=== PATIENT | female | born 1990 | race Caucasian/White ===

== ENCOUNTER 2018-05-13 14:19 | Emergency (ER) | payer OTHER ==
[~2018-05-13] VITALS: Ht 162.6 cm; Wt 102.1 kg
[~2018-05-13 14:19] MED LIST: ALBUTEROL INH; ALBUTEROL INHAL17 GM IH; ALBUTEROL2.5 MG/32 IH; BACTRIM DS TAB1 EACH PO; CARBAMAZEPINE200 M3 PO; CELEXA 20 MG TA20 M1 PO; CELEXA10 MG PO; CHILDREN'S50 MG/1.24 PO; CIPROFLOXACIN500 M1 PO; CLEOCIN HCL300 MG PO; CLONAZEPAM 1 MG1 M1 PO; FLEXERIL PO; IBUPROFEN 600600 M1 PO; IMPLANON; NAPROSYN500 MG PO; NORCO 5-325 TA1 EACH; NORCO 5-325 TA1 EACH PO; PERCOCET 5-3251 EACH PO; PREDNISONE 10 M10 M1 PO; PREDNISONE 20 M20 MG PO; PREDNISONE50 MG PO; VENTOLIN HFA INH8 GM IH; VICODIN 5-5001 EACH PO; ZOFRAN ODT4 MG PO; ZPAK PO
[2018-05-13] MEDS ORDERED: FLOVENT HFA 4444 MCG INH (14:31)
[2018-05-13 15:30] LABS: ABSOLUTE LYMPHOCYTES 0.9 thou/uL (0.8-5.3); ABSOLUTE MONOCYTES 0.5 thou/uL (0.0-1.2); ABSOLUTE NEUTROPHILS 4.6 thou/uL (1.6-8.1); BASOPHILS 0.5 %; EOSINOPHILS 0.6 %; HEMATOCRIT 38.3 % (37.0-47.0); HEMOGLOBIN 12.5 gm/dL (12.0-15.0); LYMPHOCYTES 15.2 %; MCH 29.8 pg (26.0-34.0); MCHC 32.8 g/dL (28.0-37.0); MONOCYTES 7.7 %; MPV 8.3 fl. (7.2-11.1); NUCLEATED RBCS 0 /100WBC; PLATELET COUNT* 365 thou/uL (150-400); RBC 4.21 mil/uL (4.20-5.00); RDW-CV 13.9 % (10.5-14.5)
[2018-05-13 15:36] LABS: ANION GAP 8 mmol/L (7-16); BUN 12 mg/dL (7-18); CALCIUM 7.9 mg/dL (8.5-10.1); CHLORIDE 103 mmol/L (98-107); CO2 29 mmol/L (21-32); CREATININE 0.7 mg/dL (0.6-1.3); GLUCOSE 106 mg/dL (70-99); POTASSIUM 3.3 mmol/L (3.5-5.1); SODIUM 140 mmol/L (136-145)
[2018-05-13 15:47] LABS: ALBUMIN 3.2 g/dL (3.4-5.0); ALKALINE PHOSPHATASE 60 U/L (46-116); NT-PRO BRAIN NAT PEPTIDE 31 pg/mL (<300); SGOT 16 U/L (15-37); SGPT 19 U/L (30-65); TOTAL BILIRUBIN 0.1 mg/dL (<0.1-1.0); TOTAL PROTEIN 7.2 g/dL (6.4-8.2); TROPONIN-I LEVEL <0.06 ng/mL (<0.06)
[2018-05-13] MEDS ORDERED: FLOVENT HFA10.6 GM INH (16:01)
[2018-05-13] MEDS ORDERED: VENTOLIN HFA 1818 GM INH (16:02)
[2018-05-13] MEDS ORDERED: MEDROLDOSEPACK PO (16:02)
[2018-05-13] MEDS ORDERED: ZPAK PO (16:04)
[2018-05-13] MEDS ORDERED: PROMETH-CODEIN 65 ML PO (16:04)
[2018-05-13 16:06] LABS: URINE BILIRUBIN NEGATIVE (Negative); URINE BLOOD NEGATIVE (Negative); URINE CLARITY CLEAR; URINE COLOR YELLOW; URINE GLUCOSE-RANDOM NEGATIVE (Negative); URINE KETONES TRACE (Negative); URINE LEUKOCYTES NEGATIVE (Negative); URINE NITRITE NEGATIVE (Negative); URINE PROTEIN NEGATIVE (Negative); URINE SPECIFIC GRAVITY >= 1.030 (1.005-1.030); URINE UROBILINOGEN 0.2 E.U./dl (0.2-1.0)
[2018-05-13] MEDS ORDERED: ACETAMINOPHEN-1 EAC1 PO (16:06)
[2018-05-13 17:22] VITALS: BP 145/91
--- NOTE | 2018-05-14 16:20 | EKG ---
[place] [address] ELECTROCARDIOGRAM REPORT Name: WHITNEY MAYNARD Room: [facility]#: [id number] Admission: 05/13/18 Attend Phys: Discharge: 05/13/18 Date of : 88 Report #: [id number] THIS REPORT FOR: //name// [facility] ED Test Date: 2018-05-13 Test Time: 16:36:05 Pat Name: WHITNEY MAYNARD Department: Room: Gender: F Electronic Bench Technician: : 1990 Requested By: Liset Blandon Order Number: [id number] MD: Camacho Chao Measurements Intervals [place] Rate: 88 P: 44 DC: 170 QRS: 18 QRSD: 92 T: 16 QT: 378 QTc: 458 Interpretive Statements Sinus rhythm Baseline wander in lead(s) I,II,aVR No previous ECG available for comparison Electronically Signed On 05-14-2018 16:20:41 LABOR CONTRACTOR by Camacho Chao [email or web address] <ELECTRONICALLY SIGNED> By: Camacho Chao MD, [facility] 05/14/18 1620 1636 1636 Camacho Chao MD, FACC /EPI
== END 2018-05-13 17:24 | disposition home or self-care (01) ==
LOC: M.ERS 14:19
PROVIDERS: Nurse Practitioner Family
DX: J45.901 Unspecified asthma with (acute) exacerbation (principal); Z88.0 Allergy status to penicillin; Z88.1 Allergy status to other antibiotic agents

== ENCOUNTER 2018-07-11 14:13 | Emergency (ER) | payer OTHER ==
[~2018-07-11] VITALS: Ht 162.6 cm; Wt 98.9 kg
[~2018-07-11 14:13] MED LIST changes: +ACETAMINOPHEN-1 EAC1 PO; +FLOVENT HFA 4444 MCG INH; +FLOVENT HFA10.6 GM INH; +MEDROLDOSEPACK PO; +PROMETH-CODEIN 65 ML PO; +VENTOLIN HFA 1818 GM INH
[2018-07-11] MEDS ORDERED: PREDNISONE 10 M10 M1 PO (15:09)
[2018-07-11] MEDS ORDERED: ALBUTEROL2.5 MG/31 INH (15:14)
[2018-07-11 15:24] VITALS: BP 120/79
== END 2018-07-11 15:25 | disposition home or self-care (01) ==
LOC: M.ERS 14:13
DX: J45.901 Unspecified asthma with (acute) exacerbation (principal); M54.9 Dorsalgia, unspecified; G89.29 Other chronic pain; Z88.0 Allergy status to penicillin; Z88.6 Allergy status to analgesic agent; Z88.4 Allergy status to anesthetic agent; Z88.1 Allergy status to other antibiotic agents

== ENCOUNTER 2018-10-24 19:42 | Emergency (ER) | payer OTHER ==
[~2018-10-24] VITALS: Ht 162.6 cm; Wt 86.4 kg
[~2018-10-24 19:42] MED LIST changes: +ALBUTEROL2.5 MG/31 INH
[2018-10-24] MEDS ORDERED: PREDNISONE50 MG PO (21:09)
[2018-10-24] MEDS ORDERED: CELEXA40 MG PO (21:09)
[2018-10-24] MEDS ORDERED: HYDROXYZINE HCL25 M1 PO (21:09)
[2018-10-24] MEDS ORDERED: PROAIR HFA8.5 GM INH (21:09)
[2018-10-24 21:21] VITALS: BP 128/92
== END 2018-10-24 21:21 | disposition home or self-care (01) ==
LOC: M.ERS 19:42
DX: J45.909 Unspecified asthma, uncomplicated (principal); F41.9 Anxiety disorder, unspecified; M54.9 Dorsalgia, unspecified; G89.29 Other chronic pain; F31.9 Bipolar disorder, unspecified; Z88.1 Allergy status to other antibiotic agents

== ENCOUNTER 2018-10-27 08:00 | Emergency (ER) | payer OTHER ==
[~2018-10-27] VITALS: Ht 162.6 cm; Wt 71.7 kg
[~2018-10-27 08:00] MED LIST changes: +CELEXA40 MG PO; +HYDROXYZINE HCL25 M1 PO; +PROAIR HFA8.5 GM INH
[2018-10-27] MEDS ORDERED: ALBUTEROL2.5 MG/31 INH (08:59)
[2018-10-27] MEDS ORDERED: VENTOLIN HFA 1818 GM INH (08:59)
[2018-10-27] MEDS ORDERED: PREDNISONE50 MG PO (08:59)
[2018-10-27 09:16] VITALS: BP 144/69
[2018-10-28] MEDS ORDERED: HYDRALAZINE 2525 M1 PO (15:07)
[2018-10-28] MEDS ORDERED: CELEXA10 MG PO (15:08)
[2018-10-28] MEDS ORDERED: VENTOLIN HFA 1818 GM INH (16:24)
== END 2018-10-27 09:17 | disposition home or self-care (01) ==
LOC: M.ERS 08:00
DX: J45.901 Unspecified asthma with (acute) exacerbation (principal); M54.9 Dorsalgia, unspecified; G89.29 Other chronic pain; F41.0 Panic disorder [episodic paroxysmal anxiety]; F31.9 Bipolar disorder, unspecified; F41.9 Anxiety disorder, unspecified; Z88.1 Allergy status to other antibiotic agents; Z88.4 Allergy status to anesthetic agent; Z88.0 Allergy status to penicillin

== ENCOUNTER 2018-10-28 15:02 | Emergency (ER) | payer OTHER ==
[~2018-10-28] VITALS: Ht 162.6 cm; Wt 89.4 kg
[2018-10-28] MEDS ORDERED: HYDRALAZINE 2525 M1 PO (15:07)
[2018-10-28] MEDS ORDERED: CELEXA10 MG PO (15:08)
[2018-10-28] MEDS ORDERED: VENTOLIN HFA 1818 GM INH (16:24)
--- NOTE | 2018-10-28 16:39 | NUR ---
SW was informed that pt was unable to afford albuterol inhaler or duoneb solution. SW discussed with CM cryptologic supervisor who approved for rx assistance for the lesser expensive script; SW checked good rx cost and albuterol inhaler was actually less expensive than duoneb solution. SW met with pt to discuss resources and pt signed rx assistance agreement form. Pt knew of resources and SW provided other referrals as well. Pt explained that she recently lost her job and was homeless. SW faxed script, rx assistance form and face sheet to [address] and discussed with pt, pt to have cab ride home and then she said she could get a friend to provide ride to [facility] inhaler.
[2018-10-28 16:52] VITALS: BP 115/79
== END 2018-10-28 16:53 | disposition home or self-care (01) ==
LOC: M.ERS 15:02
DX: J45.901 Unspecified asthma with (acute) exacerbation (principal); F41.0 Panic disorder [episodic paroxysmal anxiety]; F31.9 Bipolar disorder, unspecified; G89.29 Other chronic pain; M54.9 Dorsalgia, unspecified; Z88.1 Allergy status to other antibiotic agents; Z88.0 Allergy status to penicillin; Z88.6 Allergy status to analgesic agent; Z88.8 Allergy status to other drugs, medicaments and biological substances

== ENCOUNTER 2019-09-14 21:59 | Emergency (ER) | payer OTHER, MEDICAID ==
[~2019-09-14] VITALS: Ht 165.1 cm; Wt 86.2 kg
[~2019-09-14 21:59] MED LIST changes: +HYDRALAZINE 2525 M1 PO
[2019-09-14 22:34] LABS: URINE BILIRUBIN NEGATIVE (Negative); URINE BLOOD NEGATIVE (Negative); URINE CLARITY CLEAR; URINE COLOR YELLOW; URINE GLUCOSE-RANDOM NEGATIVE (Negative); URINE KETONES TRACE (Negative); URINE LEUKOCYTES-REFLEX NEGATIVE (Negative); URINE NITRITE-REFLEX NEGATIVE (Negative); URINE PROTEIN NEGATIVE (Negative); URINE SPECIFIC GRAVITY >= 1.030 (1.005-1.030)
[2019-09-14 22:43] LABS: AMP/METHAMP Negative (Negative); BARBITURATES Negative (Negative); BENZODIAZEPINES Negative (Negative); COCAINE Negative (Negative); METHADONE Negative (Negative); OPIATES Negative (Negative); PCP Negative (Negative); THC Negative (Negative)
[2019-09-14 22:44] LABS: ABSOLUTE BASOPHILS 0.1 thou/uL (0.0-0.2); ABSOLUTE EOSINOPHILS 0.3 thou/uL (0.0-0.7); ABSOLUTE LYMPHOCYTES 1.8 thou/uL (0.8-5.3); ABSOLUTE MONOCYTES 0.9 thou/uL (0.0-1.2); ABSOLUTE NEUTROPHILS 6.8 thou/uL (1.6-8.1); BASOPHILS 0.6 %; EOSINOPHILS 3.1 %; HEMATOCRIT 33.9 % (37.0-47.0); HEMOGLOBIN 11.7 gm/dL (12.0-15.0); LYMPHOCYTES 18.5 %; MCH 29.7 pg (26.0-34.0); MCHC 34.4 g/dL (28.0-37.0); MCV 86.1 fL (80.0-100.0); MONOCYTES 9.5 %; MPV 8.8 fl. (7.2-11.1); NUCLEATED RBCS 0 /100WBC; PLATELET COUNT* 344 thou/uL (150-400); POLYS 68.3 %; RBC 3.94 mil/uL (4.20-5.00); RDW-CV 15.5 % (10.5-14.5); WBC 9.9 thou/uL (4.0-11.0)
[2019-09-14 23:09] LABS: CALCIUM 8.1 mg/dL (8.5-10.1); CREATININE 0.5 mg/dL (0.6-1.3); POTASSIUM 3.5 mmol/L (3.5-5.1)
[2019-09-14 23:14] LABS: ALBUMIN 2.7 g/dL (3.4-5.0); TOTAL BILIRUBIN 0.2 mg/dL (<0.1-1.0); TOTAL PROTEIN 6.8 g/dL (6.4-8.2)
[2019-09-14 23:19] VITALS: BP 104/75
== END 2019-09-14 23:20 | disposition short-term general hospital (02) ==
LOC: M.ERS 21:59
PROVIDERS: Emergency Medicine
DX: O60.03 Preterm labor without delivery, third trimester (principal); O99.513 Diseases of the respiratory system complicating pregnancy, third trimester; Z3A.34 34 weeks gestation of pregnancy; Z88.6 Allergy status to analgesic agent; Z88.1 Allergy status to other antibiotic agents; Z79.899 Other long term (current) drug therapy

== ENCOUNTER 2020-01-11 10:47 | Emergency (ER) | payer OTHER, MEDICAID ==
[~2020-01-11] VITALS: Ht 162.6 cm; Wt 102.1 kg
[2020-01-11] MEDS ORDERED: NORCO 5-325 TA1 EAC2 PO (11:45)
[2020-01-11 11:54] VITALS: BP 131/73
== END 2020-01-11 11:55 | disposition home or self-care (01) ==
LOC: M.ERS 10:47
DX: S93.492A Sprain of other ligament of left ankle, initial encounter (principal); J45.909 Unspecified asthma, uncomplicated; Z88.1 Allergy status to other antibiotic agents; Z88.0 Allergy status to penicillin; Z88.6 Allergy status to analgesic agent; X50.9XXA Other and unspecified overexertion or strenuous movements or postures, initial encounter; Y93.89 Activity, other specified; Y92.89 Other specified places as the place of occurrence of the external cause; Y99.8 Other external cause status

== ENCOUNTER 2020-04-05 15:26 | Emergency (ER) | payer OTHER, MEDICAID ==
[~2020-04-05] VITALS: Ht 162.6 cm; Wt 99.8 kg
[~2020-04-05 15:26] MED LIST changes: +NORCO 5-325 TA1 EAC2 PO
[2020-04-05] MEDS ORDERED: VISTARIL 25 MG25 M1 PO (15:36)
[2020-04-05 16:53] LABS: ABSOLUTE BASOPHILS 0.1 thou/uL (0.0-0.2); ABSOLUTE EOSINOPHILS 0.3 thou/uL (0.0-0.7); ABSOLUTE LYMPHOCYTES 1.7 thou/uL (0.8-5.3); ABSOLUTE MONOCYTES 0.6 thou/uL (0.0-1.2); ABSOLUTE NEUTROPHILS 4.4 thou/uL (1.6-8.1); BASOPHILS 0.8 %; EOSINOPHILS 4.1 %; HEMATOCRIT 39.5 % (37.0-47.0); HEMOGLOBIN 13.1 gm/dL (12.0-15.0); LYMPHOCYTES 24.3 %; MCV 87.8 fL (80.0-100.0); MONOCYTES 8.5 %; MPV 7.8 fl. (7.2-11.1); NUCLEATED RBCS 0 /100WBC; PLATELET COUNT* 378 thou/uL (150-400); POLYS 62.3 %; RDW-CV 15.4 % (10.5-14.5)
[2020-04-05 17:02] LABS: CALCIUM 8.8 mg/dL (8.5-10.1); CREATININE 0.9 mg/dL (0.6-1.3); POTASSIUM 3.9 mmol/L (3.5-5.1)
[2020-04-05 17:07] LABS: ALBUMIN 3.7 g/dL (3.4-5.0); TOTAL BILIRUBIN 0.2 mg/dL (<0.1-1.0); TOTAL PROTEIN 7.8 g/dL (6.4-8.2)
[2020-04-05] MEDS ORDERED: MEDROLDOSEPACK PO (18:49)
[2020-04-05 19:22] VITALS: BP 136/89
== END 2020-04-05 19:22 | disposition home or self-care (01) ==
LOC: M.ERS 15:26
PROVIDERS: Personal Emergency Response Attendant
DX: J45.901 Unspecified asthma with (acute) exacerbation (principal); Z88.1 Allergy status to other antibiotic agents; Z88.0 Allergy status to penicillin; Z88.6 Allergy status to analgesic agent

== ENCOUNTER 2020-12-18 12:06 | Emergency (ER) | payer OTHER, MEDICAID ==
[~2020-12-18] VITALS: Ht 162.6 cm; Wt 102.1 kg
[~2020-12-18 12:06] MED LIST changes: +VISTARIL 25 MG25 M1 PO
[2020-12-18] MEDS ORDERED: SYMBICORT160 MCG/4. INH (12:18)
[2020-12-18] MEDS ORDERED: PROAIR HFA8.5 GM INH (12:18)
[2020-12-18] MEDS ORDERED: CLEOCIN HCL300 MG PO (12:50)
[2020-12-18] MEDS ORDERED: HYDROCODON-ACE1 EAC7 PO (12:50)
[2020-12-18 13:11] VITALS: BP 148/106
== END 2020-12-18 13:11 | disposition home or self-care (01) ==
LOC: M.ERS 12:06
DX: K04.7 Periapical abscess without sinus (principal); Z88.1 Allergy status to other antibiotic agents; Z88.0 Allergy status to penicillin; Z88.6 Allergy status to analgesic agent; Z79.899 Other long term (current) drug therapy; J45.909 Unspecified asthma, uncomplicated

== ENCOUNTER 2021-07-06 15:00 | Emergency (ER) | payer OTHER, MEDICAID ==
[~2021-07-06] VITALS: Ht 162.6 cm; Wt 102.1 kg
[~2021-07-06 15:00] MED LIST changes: +HYDROCODON-ACE1 EAC7 PO; +SYMBICORT160 MCG/4. INH
[2021-07-06 16:47] LABS: ABSOLUTE BASOPHILS 0.1 thou/uL (0.0-0.2); ABSOLUTE EOSINOPHILS 0.3 thou/uL (0.0-0.7); ABSOLUTE LYMPHOCYTES 1.4 thou/uL (0.8-5.3); ABSOLUTE MONOCYTES 0.4 thou/uL (0.0-1.2); ABSOLUTE NEUTROPHILS 5.8 thou/uL (1.6-8.1); BASOPHILS 0.8 %; EOSINOPHILS 3.2 %; HEMATOCRIT 40.7 % (37.0-47.0); HEMOGLOBIN 13.2 gm/dL (12.0-15.0); MCH 28.8 pg (26.0-34.0); MCHC 32.5 g/dL (28.0-37.0); MCV 88.6 fL (80.0-100.0); MONOCYTES 5.5 %; MPV 8.4 fl. (7.2-11.1); NUCLEATED RBCS 0 /100WBC; PLATELET COUNT* 345 thou/uL (150-400); POLYS 72.5 %; RDW-CV 14.4 % (10.5-14.5)
[2021-07-06 16:51] LABS: CALCIUM 8.7 mg/dL (8.5-10.1); CREATININE 0.7 mg/dL (0.6-1.3)
[2021-07-06 16:56] LABS: ALBUMIN 3.8 g/dL (3.4-5.0); TOTAL BILIRUBIN 0.1 mg/dL (<0.1-1.0); TOTAL PROTEIN 7.7 g/dL (6.4-8.2)
[2021-07-06] MEDS ORDERED: PREDNISONE50 MG PO (18:48)
[2021-07-06] MEDS ORDERED: ALBUTEROL2.5 MG/0.5 INH (18:51)
[2021-07-06 19:00] VITALS: BP 135/87
--- NOTE | 2021-07-07 09:12 | EKG ---
[place] [address] ELECTROCARDIOGRAM REPORT Name: WHITNEY MAYNARD Room: [facility]#: [id number] Admission: 07/06/21 Attend Phys: Discharge: 07/06/21 Date of : 88 Date of Service: 07/06/21 1608 Report #: [id number] THIS REPORT FOR: //name// [facility] ED Test Date: 2021-07-06 Test Time: 16:08:11 Pat Name: WHITNEY MAYNARD Department: Room: Gender: F School Bus Monitor: : 1990 Requested By: Nader Moura Order Number: [id number] MD: Camacho Chao Measurements Intervals [place] Rate: 119 P: 57 MD: 150 QRS: 6 QRSD: 82 T: 32 QT: 294 QTc: 414 Interpretive Statements Sinus tachycardia Delayed R wave progression compared to ECG 09/20/2018 15:27:12 No significant differences noted Electronically Signed On 07-07-2021 9:12:07 CARDIOPULMONARY TECHNICIAN AND EEG TECH by Camacho Chao [email or web address] <ELECTRONICALLY SIGNED> By: Camacho Chao MD, [facility] 07/07/21 0912 1608 1608 Camacho Chao MD, [facility] /EPI
== END 2021-07-06 19:00 | disposition home or self-care (01) ==
LOC: M.ERS 15:00
PROVIDERS: Physician Assistant
DX: J45.901 Unspecified asthma with (acute) exacerbation (principal); Z20.822 Contact with and (suspected) exposure to COVID-19; F31.9 Bipolar disorder, unspecified; F41.9 Anxiety disorder, unspecified; Z79.51 Long term (current) use of inhaled steroids; Z79.899 Other long term (current) drug therapy; Z88.1 Allergy status to other antibiotic agents; Z88.0 Allergy status to penicillin; Z88.5 Allergy status to narcotic agent; Z88.8 Allergy status to other drugs, medicaments and biological substances